=== PATIENT | female | born 1940 | race Caucasian/White ===

== ENCOUNTER 2017-05-25 22:47 | Observation (INO) | payer OTHER ==
[~2017-05-25] VITALS: Ht 152.4 cm; Wt 67.1 kg
[2017-05-25 22:59] VITALS: Ht 152.4 cm; Wt 67.1 kg
[2017-05-26 02:31] LABS: BASOPHIL % 1.6 % (0-2); RED CELL DISTRIBUTION WIDTH 12.1 % (11.5-14.5)
[2017-05-26 02:35] LABS: CALCIUM 9.2 mg/dL (8.5-10.1); CARBON DIOXIDE 26.8 mmol/L (21-32); CHLORIDE SERUM 103 mmol/L (98-107); CREATININE SERUM 0.9 mg/dL (0.6-1.0); GLUCOSE SERUM 166 mg/dL (74-106); POTASSIUM SERUM 3.3 mmol/L (3.5-5.1); SODIUM SERUM 140 mmol/L (136-145)
[2017-05-26 02:37] LABS: PLATELET COUNT 459 x10^3mcL (130-400)
[2017-05-26 02:40] LABS: ALKALINE PHOSPHATASE 87 U/L (46-116); ALT/SGPT 16 U/L (14-59); AST/SGOT 18 U/L (15-37)
[2017-05-26 02:41] LABS: ALBUMIN 3.3 g/dL (3.4-5.0)
[2017-05-26 03:34] VITALS: BP 146/91
[2017-05-26 04:27] LABS: T3 TOTAL 1.23 ng/mL
[2017-05-26 04:37] LABS: MAGNESIUM 2.3 mg/dL (1.8-2.4); PHOSPHOROUS 2.8 mg/dL (2.5-4.9)
[2017-05-26 04:38] LABS: CHOLESTEROL/HDL RATIO 4.5
[2017-05-26 04:41] LABS: FREE T4 1.06 ng/dL (0.76-1.46); FREE THYROXINE INDEX 2.9 ug/dL (1.4-4.5); T4(THYROXINE) 8.4 ug/dL (4.7-13.3)
[2017-05-26 04:54] LABS: microscopic required? NO
[2017-05-26 05:06] LABS: UA SPECIFIC GRAVITY <=1.005 (1.005-1.035); urine erythrocyte NEGATIVE (NEGATIVE)
[2017-05-26 06:28] VITALS: BP 116/65
[2017-05-26] MEDS ORDERED: CEPACOL SORE TH1 LO4 MM (08:39)
[2017-05-26 09:03] VITALS: BP 115/64
[2017-05-26 13:00] VITALS: BP 115/64
== END 2017-05-26 13:20 | disposition home or self-care (01) | DRG 155 ==
LOC: ED 22:47 → DU 05-26 02:12
PROVIDERS: Emergency Medicine; Family Medicine
DX: T17.328A Food in larynx causing other injury, initial encounter (principal); E44.1 Mild protein-calorie malnutrition; R73.03 Prediabetes; E87.6 Hypokalemia; E78.5 Hyperlipidemia, unspecified; Z68.29 Body mass index [BMI] 29.0-29.9, adult; X58.XXXA Exposure to other specified factors, initial encounter; Y93.G3 Activity, cooking and baking; Y92.010 Kitchen of single-family (private) house as the place of occurrence of the external cause
CPT/HCPCS: 83880; 84439; G0378; J1610; J1885; J2405; J7030; Q0092

== ENCOUNTER 2020-01-23 15:01 | Emergency (ER) | payer OTHER ==
[~2020-01-23] VITALS: Ht 152.4 cm; Wt 63.5 kg
[~2020-01-23 15:01] MED LIST: CEPACOL SORE TH1 LO4 MM
[2020-01-23 15:04] VITALS: Ht 152.4 cm; Wt 63.5 kg
[2020-01-23 17:59] LABS: PLATELET COUNT 286 x10^3mcL (130-400)
[2020-01-23 18:00] LABS: BASOPHIL % 0 % (0-2)
[2020-01-23 18:19] LABS: CALCIUM 8.9 mg/dL (8.5-10.1); CARBON DIOXIDE 21.3 mmol/L (21-32); CHLORIDE SERUM 104 mmol/L (98-107); GLUCOSE SERUM 171 mg/dL (74-106); POTASSIUM SERUM 3.9 mmol/L (3.5-5.1); SODIUM SERUM 137 mmol/L (136-145)
[2020-01-23 18:30] LABS: ALBUMIN 3.3 g/dL (3.4-5.0); ALKALINE PHOSPHATASE 70 U/L (46-116); ALT/SGPT 13 U/L (14-59); AST/SGOT 20 U/L (15-37); BILIRUBIN TOTAL 0.6 mg/dL (0.20-1.00); C REACTIVE PROTEIN 8.3 mg/dL (<=0.9); TOTAL PROTEIN, SERUM 7.5 g/dL (6.4-8.2)
[2020-01-23 18:42] LABS: FREE T4 1.06 ng/dL (0.76-1.46); FREE THYROXINE INDEX 3.1 ug/dL (1.4-4.5)
[2020-01-23 18:45] LABS: CK-MB < 0.5 ng/mL (0-3.6); CREATINE KINASE 26 U/L (26-192)
[2020-01-23 18:56] LABS: ERYTHROCYTE SED RATE 51 mm/hr (0-30)
[2020-01-23 19:00] VITALS: BP 112/56
[2020-01-23 20:36] LABS: UA SPECIFIC GRAVITY >=1.030 (1.005-1.035); microscopic required? YES; urine erythrocyte NEGATIVE (NEGATIVE)
== END 2020-01-23 19:00 | disposition home or self-care (01) ==
LOC: ED 15:01
PROVIDERS: Specialist
DX: R10.13 Epigastric pain (principal); E86.0 Dehydration; E78.00 Pure hypercholesterolemia, unspecified; Z88.1 Allergy status to other antibiotic agents; Z91.018 Allergy to other foods
CPT/HCPCS: 84439; J7030; Q0092